=== PATIENT | female | born 1975 | race Caucasian/White ===

== ENCOUNTER → 2017-08-10 12:30 | Outpatient (CLI) | payer OTHER ==
[2014-01-01 12:24] VITALS: BMI 26.8
[~2017-08-10 12:30] MED LIST: CLARITIN 10 MG10 MG; FOLIC ACID1 MG; IBUPROFEN600 MG PO; PRENATAL COMPLE1 TAB; STOOL SOFTENER240 MG; TOPROL XL100 MG PO
== END | disposition home or self-care (01) ==
LOC: D.MAMMO 09:00
DX: Z12.31 Encounter for screening mammogram for malignant neoplasm of breast (principal)

== ENCOUNTER 2018-09-01 07:30 | Outpatient (CLI) | payer OTHER ==
[2014-01-01 12:24] VITALS: BMI 26.8
== END 2018-09-01 23:59 | disposition home or self-care (01) ==
LOC: D.MAMMO 07:30
DX: Z12.31 Encounter for screening mammogram for malignant neoplasm of breast (principal)